=== PATIENT | male | born 1995 | race Caucasian/White ===

== ENCOUNTER → 2017-11-26 | Outpatient (CLI) | payer OTHER ==
--- NOTE | 2017-11-26 11:37 | DIAGNOSTIC IMAGING REPORT ---
L CLAVICLE CLINICAL HISTORY: Left clavicular pain COMPARISON: None. DISCUSSION: No fractures are visualized. IMPRESSION: No fractures are identified. Electronically signed by: Bob Castle M.D. 11/26/2017 11:35 AM Dictated Date/Time: 11/26/2017 11:33 AM
--- NOTE | 2017-11-26 11:38 | DIAGNOSTIC IMAGING REPORT ---
ACROMIOCLAVICULAR JOINTS CLINICAL HISTORY: Left AC joint status post trauma COMPARISON STUDY: No previous studies for comparison. FINDINGS: Images of the chromic clavicular joints without and with weights are provided for interpretation. The acromioclavicular and coracoclavicular distances appear symmetric. There is no instability on weightbearing. There is an osteochondroma arising from the superior aspect of the distal right clavicle. IMPRESSION: 1. No evidence of AC joint separation 2. Distal right clavicular osteochondroma Electronically signed by: Bob Castle M.D. 11/26/2017 11:37 AM Dictated Date/Time: 11/26/2017 11:35 AM
== END | disposition home or self-care (01) ==
LOC: C.RAD 11:12
PROVIDERS: ATTEND Family Medicine Sports Medicine
DX: M25.512 Pain in left shoulder (principal); D16.7 Benign neoplasm of ribs, sternum and clavicle